=== PATIENT | female | born 1955 | race Caucasian/White ===

== ENCOUNTER 2017-05-04 08:04 | Day surgery (SDC) | payer OTHER ==
[2017-04-27 11:22] VITALS: BMI 21.6
[2017-05-04] MEDS ORDERED: PROPOFOL 20 ML ONE ×2 (08:11)
[2017-05-04] MEDS ORDERED: LIDOCAINE HCL/PF 2% SDV 5ML VIAL ONE (08:29)
[2017-05-04 09:24] VITALS: TEMP 98
[2017-05-04 10:03] VITALS: BP 128/70; PULSE 80
== END 2017-05-04 10:32 | disposition home or self-care (01) ==
LOC: FASU-ENDO 08:04
PROVIDERS: ATTEND Internal Medicine Gastroenterology
PROC: 0DJD8ZZ Inspection of Lower Intestinal Tract, Via Natural or Artificial Opening Endoscopic (ICD-10-PCS; principal; 2017-05-04 08:56)
DX: Z86.010 Personal history of colon polyps (principal)